=== PATIENT | male | born 1965 | race Caucasian/White ===

== ENCOUNTER 2024-08-22 00:05 | Emergency (ER) | payer BC ==
[~2024-08-22] VITALS: Ht 170.2 cm; Wt 62.0 kg
[2024-08-22 00:26] VITALS: O2SAT 99
[2024-08-22] MEDS: ACETAMINOPHEN 500MG TABLET PO ONE (01:53)
[2024-08-22 02:30] VITALS: BP 152/80; PULSE 74; RESP 19; TEMP 36.8; O2SAT 98
== END 2024-08-22 02:31 | disposition home or self-care (01) ==
LOC: ER 00:05
DX: R51.9 Headache, unspecified (principal); Z88.0 Allergy status to penicillin; V43.52XA Car driver injured in collision with other type car in traffic accident, initial encounter; Y93.89 Activity, other specified; Y92.89 Other specified places as the place of occurrence of the external cause; Y99.8 Other external cause status
CPT/HCPCS: 99283